=== PATIENT | female | born 1975 | race Caucasian/White ===

== ENCOUNTER → 2020-07-23 11:13 | Outpatient (CLI) | payer OTHER, SELFPAY ==
[2020-07-23 11:44] LABS: Basophils % 0.5 % (0.1-2.0); Eosinophils # 0.1 K/mm3 (0.0-0.4); Eosinophils % 1.4 % (0.1-12.0); Hematocrit 47.6 % (37.0-47.0); Hemoglobin 15.3 g/dL (12.2-16.2); Lymphocytes # 1.9 K/mm3 (0.7-4.5); Lymphocytes % 23.6 % (10-50); Mean Corpuscular HGB Conc 32.3 g/dL (31.8-35.4); Mean Corpuscular Hemoglobin 31.1 pg (27.0-31.2); Mean Corpuscular Volume 96.3 fl (81-99); Mean Platelet Volume 7.2 fl (7.4-10.4); Monocytes # 0.4 K/mm3 (0.1-1.0); Monocytes % 5.3 % (1.7-9.3); Neutrophils # 5.7 K/mm3 (1.8-7.8); Neutrophils % 69.2 % (37.0-80.0); Platelet Count 348 K/mm3 (142-424); Red Blood Count 4.94 M/mm3 (4.20-5.40); Red Cell Distribution Width 12.5 % (11.5-17.5); White Blood Count 8.2 K/mm3 (4.8-10.8)
[2020-07-23 12:10] LABS: Chloride 103 mmol/L (98-107)
[2020-07-23 12:11] LABS: Sodium 140 mmol/L (136-145)
[2020-07-23 12:13] LABS: Alanine Aminotransferase 24 U/L (12-78); Aspartate Amino Transferase 24 U/L (14-36); Blood Urea Nitrogen 13 mg/dl (7-17); Estimated Glomerular Filt Rate 78 ml/min (>60); GFR (African American) 95 ML/MIN (>60)
[2020-07-23 12:14] LABS: Albumin Level 4.5 g/dl (3.5-5.0); Albumin/Globulin Ratio 1.6 (1.1-1.8); Alkaline Phosphatase 63 U/L (38-126); Bilirubin,Total 0.3 mg/dl (0.2-1.3); Calcium 9.7 mg/dl (8.4-10.2); Carbon Dioxide 28 mmol/L (22.0-30.0); Globulin 2.9 g/dL (1.3-3.2); Glucose 74 mg/dl (74-100); Total Protein,Serum 7.4 g/dl (6.3-8.2)
[2020-07-23 12:18] LABS: HCG Qualitative, Serum Negative (Negative)
[2020-07-23 12:42] LABS: Coronavirus 19 IgG Antibody Negative (Negative); Coronavirus 19 IgM Antibody Negative (Negative)
[2020-07-23 14:24] LABS: Amphetamine/Metha Screen,Urine Negative ng/ml (<1000)
[2020-07-23 14:25] LABS: Barbiturates Screen,Urine Negative ng/ml (<200)
[2020-07-23 14:26] LABS: Benzodiazepines Screen,Urine Negative ng/ml (<200); Cocaine Screen,Urine Negative ng/ml (<300)
[2020-07-23 14:27] LABS: Methadone Screen,Urine Negative ng/ml (<300)
[2020-07-23 14:28] LABS: Cannabinoid Screen,Urine Negative ng/ml (<50); Phencyclidine Screen,Urine Negative ng/ml (<25)
[2020-07-23 14:29] LABS: Opiate Screen,Urine Negative ng/ml (<300)
== END ==
PROVIDERS: Visit Provider Obstetrics & Gynecology
DX: Z01.818 Encounter for other preprocedural examination (principal); N92.0 Excessive and frequent menstruation with regular cycle; R10.2 Pelvic and perineal pain
CPT/HCPCS: 36415; 80053; 80305; 84703; 85025; 86328

== ENCOUNTER 2020-07-24 06:25 | Inpatient (IN) | payer OTHER, SELFPAY ==
[2020-06-28 13:41] VITALS: BMI 25.2
[2020-07-24] VITALS (24 sets, daily range): BP systolic 116–152; BP diastolic 69–98; PULSE 71–115; RESP 12–19; TEMP 36.6–43; O2SAT 95–100
--- NOTE | 2020-07-24 08:29 | HMH.HP ---
*Admission Date: 07/24/20 *Chief complaint: Heavy menstrual bleeding, pelvic pain *History of present illness: 45 yo Previous tubal ligation, x 2 Reports Heavy menstrual bleeding, DUB and polymenorrhea Patient states that she bleeds 3 out of 4 weeks every month Bleeding ranges from heavy to light; heavy days involve tampon changes q 30 minutes + severe dysmenorrhea and intermittent pelvic pain, particularly LLQ Symptoms present for approximately 4 years Reports taking 800mg Ibuprofen q 6 hrs daily with minimal relief Pelvic ultrasound [place]: Uterus 9.5 x 4.5 x 6.6cm with 3.4cm fibroid Endometrial stripe 13mm Ovaries reported as normal, but no measurements given Desires definitive surgical management with hysterectomy Counseled for ovarian preservation if ovaries appear normal during surgery [facility] History I have reviewed the patient's past medical history: Yes Medical History: Reports:: Depression Denies:: Cancer, Diabetes Mellitus Type 1, Diabetes Mellitus Type 2, Internal Pacemaker, MRSA, Seizures *Have you ever received a pneumonia vaccine?: No *Have you received a flu vaccine this season?: No Other Medical History: Denies: Blood Transfusion Reaction Other Surgeries: Yes: Cholecystectomy, Tubal Ligation. No: Pacemaker Amputation: No Fractures: No - *Social History Last grade of school completed: High school graduate Smoking Status: Never smoker Alcohol Intake: never Substance Use Type: denies use *Occupational Status:: unemployed Housing: house Household Members: spouse *Travel in the last 8 weeks: None - Psychiatric History Pschychiatric History:: Reports:: Depression Family Hx:: Cancer, Hyperlipidemia, Hypertension, Kidney Disease, Stroke, Asthma Review of Systems - Review of Systems Review of systems:: pertinent systems reviewed and negative unless documented below - *Genitourinary Reports abnormal periods, Reports heavy periods, Reports pelvic pain Meds Home Medications Medication Instructions Recorded Confirmed Type escitalopram oxalate 10 mg tablet 10 mg PO DAILY 06/11/20 06/28/20 History hydrocodone 5 mg-acetaminophen 325 1 tab PO Q6H PRN #12 tab 07/10/20 07/24/20 Rx mg tablet Allergies Allergy/AdvReac Type Severity Reaction Status Date / Time Penicillins Allergy Mild Rash Verified 07/19/20 13:59 sumatriptan [From Imitrex] Allergy Mild heart Verified 07/19/20 13:59 palpations Exam Vital signs and Labs for Last 24 Hours: Temp Pulse Resp BP Pulse Ox 97.8 F 89 18 140/81 99 07/24/20 06:54 07/24/20 06:54 07/24/20 06:54 07/24/20 06:54 07/24/20 06:54 - *Routine HEENT Exam Head: Present: normocephalic Eye: Absent: conjunctival icterus ENT: Present: mucous membranes moist - *Routine Neck Exam Present: supple. Absent: lymphadenopathy - *Routine Respiratory Exam Present: CTA bilaterally - *Routine Cardiovascular Exam Present: RRR - *Routine Abdominal Exam Present: soft, normoactive bowel sounds. Absent: tenderness, distended - *Routine Exam External: Absent: lesions Comments: enlarged uterus - *Routine Extremities Exam Absent: cyanosis, clubbing, edema - *Routine Skin Exam Present: warm. Absent: rash - *Routine Neurological Exam Present: alert, oriented X3 Assessment and Plan (1) Heavy menstrual bleeding Status: Acute Category: Medical Code(s): N92.0 - Excessive and frequent menstruation with regular cycle (2) DUB (dysfunctional uterine bleeding) Status: Acute Category: Medical Code(s): N93.8 - Other specified abnormal uterine and vaginal bleeding (3) Pelvic pain in female Status: Acute Category: Medical Code(s): R10.2 - Pelvic and perineal pain (4) Severe dysmenorrhea Status: Acute Category: Medical Code(s): N94.6 - Dysmenorrhea, unspecified (5) Bulky or enlarged uterus Status: Acute Category: Medical Code(s): N85.2 - Hypertrophy of uterus (6) Uterine fibroid Status: A
--- NOTE | 2020-07-24 09:30 | HMH.PHAINT ---
Medication reconciliation completed using pharmacy claims data.
--- NOTE | 2020-07-24 09:59 | P.PN_ITS ---
[facility] Anesthesia Checklist - Structural Data Admitted From: Home Planned Operative Procedure/s: [facility] Consent for Planned Operative Procedure(s) Verified: Yes - Additional verifications Anesthesia Reactions: No Hx Blood Transfusions: No Blood Transfusion Reaction: No - Airway Assessment C-Spine Mobility Assessed: Yes TMJ Mobility Assessed: Yes Dentition: Good Dentition - Neurological Assessment Level of Consciousness: Awake, Alert, Appropriate - Anesthesia Plan Anesthesia Risk discussed: Yes Anesthesia Plan: Verified ASA Class: II Anesthesia Type: General [facility] History I have reviewed the patient's past medical history: Yes Medical History: Reports:: Depression Denies:: Cancer, Diabetes Mellitus Type 1, Diabetes Mellitus Type 2, Internal Pacemaker, MRSA, Seizures *Have you ever received a pneumonia vaccine?: No *Have you received a flu vaccine this season?: No Other Medical History: Denies: Blood Transfusion Reaction Anesthesia experience/problems:: none Other Surgeries: Yes: Cholecystectomy, Tubal Ligation. No: Pacemaker Amputation: No Fractures: No - *Social History Last grade of school completed: High school graduate Smoking Status: Never smoker Alcohol Intake: never Substance Use Type: denies use *Occupational Status:: unemployed Housing: house Household Members: spouse *Travel in the last 8 weeks: None - Psychiatric History Pschychiatric History:: Reports:: Depression Family Hx:: Cancer, Hyperlipidemia, Hypertension, Kidney Disease, Stroke, Asthma
--- NOTE | 2020-07-24 10:52 | P.PN_ITS ---
[facility] Anesthesia Record Part I Intake, IV Amount: 2,000 Estimated blood loss (mL): 200 Urine output (mL): 100 Blood Pressure: 150/90 SaO2: 95 Pulse Rate: 85 Respiratory Rate: 12 Temperature: 98.5 F Patient is:: Awake, Stable Stable to PACU at:: 10:45
[2020-07-24 11:17] LABS: Microscopic,Cath URINE MICROSCOPIC (MICROSCOPIC)
--- NOTE | 2020-07-24 11:35 | PC.NURSE ---
Report received from Linwood Aguilar RN (PACU)
--- NOTE | 2020-07-24 11:45 | PC.NURSE ---
Pt arrived to room 280 via bed from PACU and O.R. staff x2.
--- NOTE | 2020-07-24 12:32 | HMH.OPNOTE ---
Date of procedure: 07/24/20 Pre-op Diagnosis:: Heavy menstrual bleeding Dysfunctional uterine bleeding Pelvic pain Uterine fibroid Post-op Diagnosis:: same Procedure performed:: Total Abdominal Hysterectomy Surgeon:: Arlene Lovell MD Special Education Administrator(s):: Renee Luis PLATE GLASS POLISHER:: Tarun Gray Anesthesia: GETA Estimated blood loss (mL): 200 Operative findings:: enlarged uterus normal ovaries bilaterally displaced fallope rings Operative note:: The patient was taken to the operating room and general anesthesia was administered without difficulty. She was prepped and draped in the supine position. A Pfannenstiel skin incision was made approximately 2 cm above the pubic symphysis with a scalpel and carried down to the underlying layer of fascia. The fascia was incised in the midline and extended laterally sharply. The rectus muscles were sharply dissected off the fascia and in the midline. The peritoneum was turned and sharply, with good visualization of the underlying structures. The peritoneal incision was extended bluntly. A survey of the patient's pelvis and abdomen revealed an enlarged uterus with normal ovaries. At this time, the patient was placed in Trendelenburg and a Leo retractor was placed in the abdomen; the bowel was packed with moist laparotomy sponges. A double tooth tenaculum was placed on the uterine fundus and the uterus was elevated out of the pelvis. No fibroids or other visible uterine lesions were noted. The round ligaments were identified and transected and suture-ligated. The anterior lip of the broad ligament was dissected medially on both sides and the bladder flap was created digitally. The posterior leaf of the broad ligament was dissected until the ureters were able to be identified on either side and noted to be free of the forthcoming adnexal pedicles. Infundibulopelvic ligaments were doubly clamped transected and suture ligated on either side, with excellent hemostasis noted. The uterine arteries were skeletonized on either side, and were clamped, transected and suture ligated with excellent hemostasis. The bladder flap was further bluntly dissected off the lower uterine segment with excellent hemostasis and without injury to the bladder. The cardinal and uterosacral ligaments were clamped transected and suture ligated on both sides until the vaginal mucosa was entered. The vaginal incision was extended circumferentially with the Jorganson scissors; the uterus and cervix were removed abdominally and sent for pathology, along with the fallopian tubes. The vaginal cuff angles were closed 0 Vicryl [id number] sutures and were transfixed to the ipsilateral cardinal and uterosacral ligaments. The remainder of the vaginal cuff was closed with 0 Vicryl interrupted sutures. The pelvis was copiously irrigated with a solution of sterile water. The cuff was hemostatic. All pedicles were reexamined and remained hemostatic. All instruments were removed from the patient's abdomen. The peritoneum was closed with 2-0 Vicryl in a running fashion. The fascia was closed with 0 Vicryl in a running fashion. The skin was closed with kiara. The patient tolerated the procedure well; sponge/lap/needle and instrument counts were correct ?2. She was taken to the recovery room awake in stable condition. Estimated blood loss: 200 cc. Condition: stable Disposition: PACU Specimens:: uterus and cervix Complications:: None
--- NOTE | 2020-07-24 13:08 | PC.NURSE ---
Pt very drowsy from pain medication. Complains of escobedo catheter being uncomfortable and needing to pee. Tubing and position of catheter manipulated and position of where collection bag was hanging changed several times. Able to get 300mls bright yellow clear urine to empty.
--- NOTE | 2020-07-24 13:35 | PC.NURSE ---
Pt remains asleep, spouse remains at bs, escobedo cath patent to bsd at this time.
[2020-07-24 13:49] LABS: Hematocrit 34.9 % (37.0-47.0); Hemoglobin 11.5 g/dL (12.2-16.2)
[2020-07-24 14:03] LABS: Appearance,Urine/Cath CLEAR (Clear); Bilirubin,Cath Negative (Negative); Blood, Urine/Cath 1+ (Negative); Color,Urine/Cath YELLOW (Yellow); Glucose,Urine/Cath (UA) Negative (Negative); Ketones,Urine/Cath Negative (Negative); Leukocyte Esterase,Cath Negative (Negative); Nitrate,Cath Negative (Negative); Protein,Urine/Cath 1+ (Negative); Specific Gravity, Urine/Cath >= 1.030 (1.005-1.030); Urobilinogen,Cath 0.2 EU/dl (0.2)
[2020-07-24 14:15] LABS: Squamous Epithelial Ur./Cath Occasional #/hpf (0-5)
--- NOTE | 2020-07-24 15:19 | PC.NURSE ---
Pt sleeping soundly at this time. at bs in chair watching TV. Reports that pt has been asleep since receiving pain medication and is resting well. Vital signs continue to cycle. O2 SATS remain 100% on 2L NC. Tri Cath patent to bsd.
--- NOTE | 2020-07-24 16:38 | PC.NURSE ---
remains at bs. Pt remains asleep at this time. Yellow urine noted to be draining in escobedo cath..
--- NOTE | 2020-07-24 17:00 | PC.NURSE ---
Pt has rested better after this last dose of pain medication. Bartlett cath remains patent to bsd. Clear yellow urine noted. IV LR infusing at 125ml/hr in rt/fa. Lungs remain clear, +BSx4 quads, LTV incision dressing CDI, small amt vaginal bleeding noted. No edema. Bilat compression stockings (thigh high) remain in place. V/S stable. remains at bs.
--- NOTE | 2020-07-24 19:24 | PC.NURSE ---
Report received Amilcar DacostaRN
--- NOTE | 2020-07-24 22:00 | P.PN_ITS ---
[facility] Anesthesia Record Part II Discharge Time: 11:15 Destination: Obstetric PACU nurse assessment reviewed?: Yes Patient Condition:: Good Anesthesia Complications:: None Swallowing reflex intact?: Yes Cyanosis?: No Blood Pressure: 150/95 Pulse Rate: 71 Temperature: 97.9 F Mental Status: Alert & Oriented Pain level:: 0 Nausea and/or vomitting:: None Intake, IV Amount: 0
[2020-07-25 02:14] VITALS: BP 121/81; PULSE 99; RESP 18; TEMP 37.7; O2SAT 97
[2020-07-25 04:30] VITALS: BP 106/83; PULSE 110; RESP 18; TEMP 36.8; O2SAT 95
--- NOTE | 2020-07-25 05:40 | PC.NURSE ---
Pt has slept in intervals this shift. A&O x4, BLT Lung sounds clear, Bowel sounds present in all 4 quadrants but are hypoactive. Pt switched to 1L NC r/t pain medicine and mouth breathing, O2 saturation 93% without O2. Pts incision remains covered with a dressing and is C/D/I. Pt has been medicated for pain per MAR throughout this shift. thigh high ICPs remain in place. Pt has voided per BSC with x1 assistance. A belly binder was put on the Pt at this time to help splint the incision. Pt is tolerating a clear liquid diet well
--- NOTE | 2020-07-25 07:11 | PC.NURSE ---
Report received from Dulce Maria Sterling RN.
--- NOTE | 2020-07-25 07:11 | PC.NURSE ---
Report given to Jodi PerlaRN
--- NOTE | 2020-07-25 07:14 | HMH.PHAVTE ---
[facility] VTE Monitoring - Patient Demographics Admission date: 07/24/20 Report Date: 07/25/20 Time: 07:14 Allergies/Adverse Reactions: Patient Allergies Penicillins Allergy (Mild, Verified 07/19/20 13:59) Rash sumatriptan [From Imitrex] Allergy (Mild, Verified 07/19/20 13:59) heart palpations Height: 1.57 m Weight: 62.596 kg Patient Problems: Current Active Problems Severe dysmenorrhea (Acute) History of tubal ligation (Acute) Pelvic pain in female (Acute) DUB (dysfunctional uterine bleeding) (Acute) Uterine fibroid (Acute) Bulky or enlarged uterus (Acute) Heavy menstrual bleeding (Acute) - VTE Risk Labs: VTE Related Lab Results Hgb 11.5 g/dL (12.2-16.2) L 07/24/20 13:20 Hct 34.9 % (37.0-47.0) L 07/24/20 13:20 Clinical Trial Participant: No - Prophylaxis VTE Prophylaxis Ordered?: Yes Types of VTE Prophylaxis: IPCS Knee High Location of Applied Device: Bilateral Lower Extremeties
[2020-07-25 07:18] LABS: Chloride 102 mmol/L (98-107); Sodium 134 mmol/L (136-145)
[2020-07-25 07:19] LABS: Potassium 4.2 mmoL/L (3.5-5.1)
[2020-07-25 07:21] LABS: Blood Urea Nitrogen 15 mg/dl (7-17); Creatinine Clearance Estimated 80 mL/min (50-200); Estimated Glomerular Filt Rate 68 ml/min (>60); GFR (African American) 83 ML/MIN (>60)
[2020-07-25 07:22] LABS: Anion Gap 7.2 mEq/L (5-15); Carbon Dioxide 29 mmol/L (22.0-30.0); Glucose 132 mg/dl (74-100)
[2020-07-25 07:47] LABS: Basophils % 0.1 % (0.1-2.0); Hematocrit 27.8 % (37.0-47.0); Lymphocytes # 1.4 K/mm3 (0.7-4.5); Lymphocytes % 13.9 % (10-50); Mean Corpuscular HGB Conc 33.5 g/dL (31.8-35.4); Mean Corpuscular Hemoglobin 31.9 pg (27.0-31.2); Mean Corpuscular Volume 95.4 fl (81-99); Mean Platelet Volume 7.6 fl (7.4-10.4); Monocytes # 0.8 K/mm3 (0.1-1.0); Neutrophils % 78.1 % (37.0-80.0); Platelet Count 314 K/mm3 (142-424); Red Blood Count 2.91 M/mm3 (4.20-5.40); White Blood Count 10.2 K/mm3 (4.8-10.8)
[2020-07-25 07:48] LABS: Hemoglobin 9.3 g/dL (12.2-16.2)
[2020-07-25 08:00] VITALS: BP 98/55; PULSE 82; RESP 16; TEMP 36.7; O2SAT 100
--- NOTE | 2020-07-25 08:20 | PC.NURSE ---
Routine assessment completed. BP noted to be at 98/55. all other VSS. SPO2 at 100% on RA, NC removed pt. SPO2 remains at 100% on RA. Lungs CTA, Heart at RR. BS present x4 quad. Pt. reports passing small amount of flatus.Low transverse incision with T&T noted to be C/D/I. Pt. reports pain at 6/10 at incision site, see EMAR for medications given. Thigh high IPCS intact. pt. remains on clear liquid diet, Pt. denies further needs. Will continue to monitor.
[2020-07-25 08:25] VITALS: BMI 25.4
--- NOTE | 2020-07-25 09:18 | PC.NURSE ---
09:18 - Pt. reports pain has worsened and pain medication ineffective. additional pain medication given see EMAR. 09:25 - Pt. reports Pain easing with additional pain medication. Pt. denies further needs, will continue to monitor.
--- NOTE | 2020-07-25 09:20 | PC.NURSE ---
19:18 - Pt. reports pain has worsened, Additional pain medication given. 19:20 - Pt. reports pain medication starting to have effect. Pt. denies further needs will continue to monitor.
--- NOTE | 2020-07-25 10:28 | PC.NURSE ---
Dr. Lovell in room seeing pt. Report given to MD on pain control, vitals trends, and labs. Orders received to change IV Dilaudid to P.O dilaudid. Orders read back and verified.
--- NOTE | 2020-07-25 10:37 | HMH.ACPN2 ---
Internal Medicine - PN: Subj *Date: 07/25/20 *Time: 10:37 Interval history: POD #1 LEEROY Tolerating po and voiding without difficulty Pain control has been insufficient with oxycodone; switching to po dilaudid Exam Vital signs and Labs for Last 24 Hours: Temp Pulse Resp BP Pulse Ox 98.1 F 82 16 98/55 L 100 07/25/20 08:00 07/25/20 08:00 07/25/20 08:00 07/25/20 08:00 07/25/20 08:00 Laboratory Results - last 24 hr 07/24/20 08:45: Urine Color Yellow, Urine Appearance Clear, Urine pH 6.0, Ur Specific [place] >= 1.030, Urine Protein 1+, Urine Glucose (UA) Negative, Urine Ketones Negative, Urine Blood 1+, Urine Nitrate Negative, Urine Bilirubin Negative, Urine Urobilinogen 0.2, Ur Leukocyte Esterase Negative, Urine RBC 5-10, Urine WBC 3-5, Ur Squamous Epith Cells Occasional 07/24/20 13:20: Hgb 11.5 L, Hct 34.9 L 07/25/20 06:21: Sodium 134 L, Potassium 4.2, Chloride 102, Carbon Dioxide 29, Anion Gap 7.2, BUN 15, Creatinine 0.90, Estimated Creat Clear 80, Estimated GFR 68, Est GFR ( Amer) 83, Glucose 132 H, Calcium 8.0 L D 07/25/20 06:21: WBC 10.2, RBC 2.91 L D, Hgb 9.3 L D, Hct 27.8 L, MCV 95.4, MCH 31.9 H, MCHC 33.5, RDW 13.0, Plt Count 314, MPV 7.6, Neut % (Auto) 78.1, Lymph % (Auto) 13.9, [place] % (Auto) 8.0, Eos % (Auto) 0.0 L, Baso % (Auto) 0.1, Neut # (Auto) 8.0 H, Lymph # (Auto) 1.4, [place] # (Auto) 0.8, Eos # (Auto) 0.0, Baso # (Auto) 0.0 I & O for Last 24 hours: Intake & Output 07/22/20 07/23/20 07/24/20 07/25/20 11:59 11:59 11:59 11:59 Intake Total 1999 0 / 0 Output Total 450 / 450 Balance 1999 -450 / -450 Weight 138 lb 0.009 oz Narrative: CONSTITUTIONAL: no acute distress HEENT: mucous membranes moist PULMONARY: breathing unlabored without audible wheezes CV: no tachycardia or visible JVD; normal LE peripheral pulses ABD: soft, ND; appropriately tender but no rebound/guarding SKIN: incision well approximated with no drainage, erythema or induration EXT: no edema LEs NEURO: alert/oriented, no altered mental status PSYCH: appropriate mood and demeanor without anxiety/depression Assessment and Plan (1) Heavy menstrual bleeding Status: Acute Category: Medical Code(s): N92.0 - Excessive and frequent menstruation with regular cycle (2) DUB (dysfunctional uterine bleeding) Status: Acute Category: Medical Code(s): N93.8 - Other specified abnormal uterine and vaginal bleeding (3) Pelvic pain in female Status: Acute Category: Medical Code(s): R10.2 - Pelvic and perineal pain (4) Severe dysmenorrhea Status: Acute Category: Medical Code(s): N94.6 - Dysmenorrhea, unspecified (5) Bulky or enlarged uterus Status: Acute Category: Medical Code(s): N85.2 - Hypertrophy of uterus (6) Uterine fibroid Status: Acute Category: Medical Code(s): D25.9 - Leiomyoma of uterus, unspecified (7) History of tubal ligation Status: Acute Category: Surgical Code(s): Z98.51 - Tubal ligation status (8) History of hysterectomy Status: Acute Category: Surgical Code(s): Z90.710 - Acquired absence of both cervix and uterus - Assessment and plan all Dx Assessment and Plan for all problems:: Routine postop care Switch oxycodone to dilaudid Possible discharge tomorrow
[2020-07-25 12:00] VITALS: BP 129/77; PULSE 98; RESP 16; TEMP 37.1; O2SAT 98
--- NOTE | 2020-07-25 12:17 | PC.NURSE ---
Pt. ambulated to bathroom. Pt. tolerated well. Pt. rates pain at 3/10. Pt. back to bed with assistance. Pt. denies further needs, will continue to monitor.
--- NOTE | 2020-07-25 15:45 | PC.NURSE ---
Dr. Peraza on unit, update given on Pt. as Dr. Peraza [facility]. Pt. pain level is at 8/10, Medication not available until 16:00. v/u. Verbal Order received for 0.5-1mg Dilaudid IV Q2PRN for breakthrough pain and to monitor, O2 sats when given. Orders read back and verified.
[2020-07-25 16:00] VITALS: BP 107/65; PULSE 97; RESP 16; TEMP 37.1; O2SAT 100
--- NOTE | 2020-07-25 16:00 | PC.NURSE ---
Routine reassessment completed. VSS. Pt. rates pain at 8/10. See EMAR for medications given. No further acute changes noted. Lungs remain CTA, Heart at RR. BS present x4 quad. Pt. reports passing flatus. T&T at LTV remains C/D/I. Pt. in bed without SCUDS ON. Pt. has been ambulating in room. Pt. denies further needs will continue to monitor.
--- NOTE | 2020-07-25 19:12 | PC.NURSE ---
Report given to Luisana Zamudio RN.
[2020-07-25 20:16] VITALS: BP 120/68; PULSE 103; RESP 20; TEMP 37.1; O2SAT 100
--- NOTE | 2020-07-25 20:34 | PC.NURSE ---
pt continued to c/o increased pain, pt moaning in pain continued to rate pain a 10/10 on pain scale, abd soft,bs x4, no nausea noted, pt has minimal movements related to pain in abdomen, abd binder loosened at this time, warm blanket provided and prn medication given. will continue to monitor at this time
--- NOTE | 2020-07-25 23:28 | PC.NURSE ---
PT C/O BACK PAIN AT THIS TIME, HEATING PAD PROVIDED
[2020-07-26 04:33] VITALS: BP 108/68; PULSE 101; RESP 18; TEMP 37.2; O2SAT 93
--- NOTE | 2020-07-26 05:41 | PC.NURSE ---
pt is alert and oriented and able to make needs known, pt has been medicated multiple times for pain when pt awake pt rates pain 10/10 on pain scale. pt has rested in intervals, lungs remain clear, heart rate regular, bs x4, abd tender but soft, low transverse incision dressing in place and clean dry and intact, vss. will continue to monitor at this time
--- NOTE | 2020-07-26 07:04 | PC.NURSE ---
Report received from Luisana Zamudio RN.
--- NOTE | 2020-07-26 07:05 | PC.NURSE ---
report given to Otoniel Perla RN
[2020-07-26 08:00] VITALS: BP 108/58; PULSE 91; RESP 16; TEMP 37; O2SAT 94
--- NOTE | 2020-07-26 08:00 | PC.NURSE ---
Routine assessment completed. VSS. Lungs CTA, Heart at RR. BS present x4 quad. LTV T&T C/D/I dressing changed scant amount of dry sanguineous drainage noted to inside of dressing, site cleansed with 1/2 NS 1/2 Peroxide solution, kiara remain in place, skin is approximated, and pink, new T&T in place. Pt. reports pain at 6/10 requests pain medication. Pt. refuses SCUDS at this time. Pt denies further needs, will continue to monitor.
--- NOTE | 2020-07-26 08:20 | PC.NURSE ---
Spoke with Dr. Lovell via telephone regarding pt. pain. Orders received to given P.O dilaudid 2 mg dose now, add Ibuprofen 800mg Q6 PRN,. D/C IV dilaudid, and P.O Toradol, Orders read back and verified.
[2020-07-26 09:10] LABS: Hemoglobin 7.7 g/dL (12.2-16.2)
[2020-07-26 09:11] LABS: Hematocrit 22.7 % (37.0-47.0)
--- NOTE | 2020-07-26 09:15 | PC.NURSE ---
Dr. Lovell notified of critical H/H no orders received. reports she will be over to see Pt.
--- NOTE | 2020-07-26 13:25 | HMH.ACPN2 ---
Internal Medicine - PN: Subj *Date: 07/26/20 *Time: 13:25 Interval history: POD #2 LEEROY Having difficulty with pain control and requesting IV pain meds PO dilaudid working better than oxycodone but giving her a headache Hgb dropped from 9.3 yesterday to 7.7 today Abdominal tenderness with palpation is mild, and abdomen soft, non-distended No drainage from incision Tolerating regular diet Ambulating and voiding without difficulty Exam Vital signs and Labs for Last 24 Hours: Temp Pulse Resp BP Pulse Ox 98.6 F 91 H 16 108/58 L 94 L 07/26/20 08:00 07/26/20 08:00 07/26/20 08:00 07/26/20 08:00 07/26/20 08:00 Laboratory Results - last 24 hr 07/26/20 08:35: Hgb 7.7 L*, Hct 22.7 L* I & O for Last 24 hours: Intake & Output 07/24/20 07/25/20 07/26/20 07/27/20 11:59 11:59 11:59 11:59 Intake Total 1999 0 / 0 Output Total 450 / 450 Balance 1999 -450 / -450 Weight 138 lb 0.009 oz Narrative: CONSTITUTIONAL: no acute distress HEENT: mucous membranes moist PULMONARY: breathing unlabored without audible wheezes CV: no tachycardia or visible JVD; normal LE peripheral pulses ABD: soft, ND; appropriately tender but no rebound/guarding SKIN: incision well approximated with no drainage, erythema or induration EXT: no edema LEs NEURO: alert/oriented, no altered mental status PSYCH: appropriate mood and demeanor without anxiety/depression Assessment and Plan (1) Heavy menstrual bleeding Status: Acute Category: Medical Code(s): N92.0 - Excessive and frequent menstruation with regular cycle (2) DUB (dysfunctional uterine bleeding) Status: Acute Category: Medical Code(s): N93.8 - Other specified abnormal uterine and vaginal bleeding (3) Pelvic pain in female Status: Acute Category: Medical Code(s): R10.2 - Pelvic and perineal pain (4) Severe dysmenorrhea Status: Acute Category: Medical Code(s): N94.6 - Dysmenorrhea, unspecified (5) Bulky or enlarged uterus Status: Acute Category: Medical Code(s): N85.2 - Hypertrophy of uterus (6) Uterine fibroid Status: Acute Category: Medical Code(s): D25.9 - Leiomyoma of uterus, unspecified (7) History of tubal ligation Status: Acute Category: Surgical Code(s): Z98.51 - Tubal ligation status (8) History of hysterectomy Status: Acute Category: Surgical Code(s): Z90.710 - Acquired absence of both cervix and uterus (9) Anemia associated with acute blood loss Status: Acute Category: Medical Code(s): D62 - Acute posthemorrhagic anemia - Assessment and plan all Dx Assessment and Plan for all problems:: Will switch po dilaudid to po oxycodone patient desires discharge home today and physical exam/vitals are stable for discharge started on po ferrous sulfate for postop anemia
--- NOTE | 2020-07-26 13:48 | [facility].DCSUM ---
General - General Admission date:: 07/24/20 Discharge date: 07/26/20 HPI HPI: 45 yo Previous tubal ligation, x 2 Reports Heavy menstrual bleeding, DUB and polymenorrhea Patient states that she bleeds 3 out of 4 weeks every month Bleeding ranges from heavy to light; heavy days involve tampon changes q 30 minutes + severe dysmenorrhea and intermittent pelvic pain, particularly LLQ Symptoms present for approximately 4 years Reports taking 800mg Ibuprofen q 6 hrs daily with minimal relief Pelvic ultrasound [place]: Uterus 9.5 x 4.5 x 6.6cm with 3.4cm fibroid Endometrial stripe 13mm Ovaries reported as normal, but no measurements given Desires definitive surgical management with hysterectomy Counseled for ovarian preservation if ovaries appear normal during surgery Hospital Course Hospital Course: Patient underwent total abdominal hysterectomy Discharged home on POD #2 Tolerating regular diet Ambulating and voiding without difficulty Asymptomatic with acute blood loss anemia Patient desires discharge home today Objective Vital signs: Temp Pulse Resp BP Pulse Ox 98.6 F 91 H 16 108/58 L 94 L 07/26/20 08:00 07/26/20 08:00 07/26/20 08:00 07/26/20 08:00 07/26/20 08:00 Narrative: CONSTITUTIONAL: no acute distress HEENT: mucous membranes moist PULMONARY: breathing unlabored without audible wheezes CV: no tachycardia or visible JVD; normal LE peripheral pulses ABD: soft, ND; appropriately tender but no rebound/guarding SKIN: incision well approximated with no drainage, erythema or induration EXT: no edema LEs NEURO: alert/oriented, no altered mental status PSYCH: appropriate mood and demeanor Results Labs on day of discharge: Labs from last 24 hours 07/26/20 08:35 Hgb 7.7 L* Hct 22.7 L* DS: Diagnosis - Discharge Diagnosis (1) Heavy menstrual bleeding Status: Acute (2) DUB (dysfunctional uterine bleeding) Status: Acute (3) Pelvic pain in female Status: Acute (4) Severe dysmenorrhea Status: Acute (5) Bulky or enlarged uterus Status: Acute (6) Uterine fibroid Status: Acute (7) History of tubal ligation Status: Acute (8) History of hysterectomy Status: Acute (9) Anemia associated with acute blood loss Status: Acute Discharge Plan - Patient Discharge Instructions ACTIVITY: Continue current activity DIET: regular diet Additional Instructions: No Heavy Lifting, no Strenuous activity, Nothing in the Vagina for 6 weeks. Return to OB unit on Thursday07/28/20 for Staple removal. Patient Instructions: DI for Tubal Ligation, DI for Hysterectomy, How to Care for a Surgical Wound-Bhvaesh, Preventing the Spread of Coronavirus Discharge Instructions - Follow up Plan Disposition: Home, Self-Skilled Nursing Medications: Home Medications Medication Instructions Recorded Confirmed Type escitalopram oxalate 10 mg tablet 10 mg PO DAILY 06/11/20 06/28/20 History Hydrocodone/Acetaminophen [[place] 1 tab PO Q6H PRN 07/24/20 07/24/20 History 5-325 Tablet] Ferrous Sulfate [Ferrous Sulfate 325 mg PO BID #60 tab 07/26/20 Rx 325mg Tab] Ibuprofen [Motrin 400mg 800 mg PO Q6HP PRN #40 tab 07/26/20 Rx tablet] Oxycodone HCl [OxyIR 5mg tablet] 5 - 10 mg PO Q4HP PRN #30 tab 07/26/20 Rx Promethazine HCl [Phenergan 12.5 mg PO Q6HP PRN #20 vial 07/26/20 Rx 25mg/mL 1mL vial] Prescriptions/Medication Reconciliation: New Oxycodone HCl [OxyIR 5mg tablet] 5 - 10 mg PO Q4HP PRN #30 tab PRN Reason: Moderate To Severe Pain Ibuprofen [Motrin 400mg tablet] 800 mg PO Q6HP PRN #40 tab PRN Reason: Mild Pain,Fever,Headache Promethazine HCl [Phenergan 25mg/mL 1mL vial] 12.5 mg PO Q6HP PRN #20 vial PRN Reason: Nausea And Vomiting Continued escitalopram oxalate 10 mg tablet 10 mg PO DAILY Hydrocodone/Acetaminophen [[place] 5-325 Tablet] 1 tab PO Q6H PRN PRN Reason
--- NOTE | 2020-07-26 15:20 | PC.NURSE ---
Discharge instructions provided, questions encouraged and answered. Discharge paperwork signed my pt. at this time.
--- NOTE | 2020-07-26 15:40 | PC.NURSE ---
Pt. left the unit via wheelchair. Accompanied by staff and spouse.
== END 2020-07-26 15:40 | disposition home or self-care (01) | DRG 743 ==
LOC: OB 06:26
PROVIDERS: Admitting Provider Obstetrics & Gynecology; PCP Emergency Medicine; Visit Provider Obstetrics & Gynecology
PROC: 0UT90ZZ Resection of Uterus, Open Approach (ICD-10-PCS; CPT 58150; principal; 2020-07-24 08:00)
DX: N92.0 Excessive and frequent menstruation with regular cycle (principal); N93.8 Other specified abnormal uterine and vaginal bleeding; N85.2 Hypertrophy of uterus; N94.6 Dysmenorrhea, unspecified; D64.9 Anemia, unspecified; D25.9 Leiomyoma of uterus, unspecified; R10.2 Pelvic and perineal pain
CPT/HCPCS: 58150; 36415; 80048; 80053; 80305; 81001; 84703; 85014; 85018; 85025; 86328; 94761; 96374; J2405; J2710

== ENCOUNTER → 2020-08-07 15:06 | Outpatient (CLI) | payer OTHER, SELFPAY ==
[2020-08-07 15:07] LABS: Microscopic, Urine URINE MICROSCOPIC (MICROSCOPIC)
[2020-08-07 16:01] LABS: Basophils # 0.1 K/mm3 (0-0.2); Basophils % 0.8 % (0.1-2.0); Eosinophils # 0.5 K/mm3 (0.0-0.4); Eosinophils % 3.2 % (0.1-12.0); Hematocrit 34.7 % (37.0-47.0); Hemoglobin 11.2 g/dL (12.2-16.2); Lymphocytes # 2.6 K/mm3 (0.7-4.5); Lymphocytes % 15.9 % (10-50); Mean Corpuscular HGB Conc 32.4 g/dL (31.8-35.4); Mean Corpuscular Hemoglobin 29.8 pg (27.0-31.2); Mean Corpuscular Volume 92.1 fl (81-99); Mean Platelet Volume 7.3 fl (7.4-10.4); Monocytes # 0.9 K/mm3 (0.1-1.0); Monocytes % 5.5 % (1.7-9.3); Neutrophils # 12.2 K/mm3 (1.8-7.8); Neutrophils % 74.5 % (37.0-80.0); Platelet Count 686 K/mm3 (142-424); Red Blood Count 3.77 M/mm3 (4.20-5.40); Red Cell Distribution Width 13.5 % (11.5-17.5); White Blood Count 16.4 K/mm3 (4.8-10.8)
[2020-08-07 16:09] LABS: MANUAL DIFFERENTIAL MANUAL DIFFERENTIAL (MANUAL DIFF)
[2020-08-07 18:05] LABS: Appearance,Urine TURBID (Clear); Blood, Urine 3+ (Negative); Color,Urine BROWN (Yellow); Glucose,Urine (UA) Negative (Negative); Ketones,Urine TRACE (Negative); Leukocyte Esterase,Urine 1+ (Negative); Nitrate,Urine POSITIVE (Negative); PH,Urine 6.5 (5.0-8.5); Protein,Urine 3+ (Negative); Specific Gravity, Urine >= 1.030 (1.005-1.030)
[2020-08-07 18:14] LABS: Bilirubin,Urine Negative (Negative)
[2020-08-07 18:39] LABS: RBC,Urine 20-50 #/hpf (0-3)
[2020-08-07 22:21] LABS: Eosinophils % 3 % (0-3); Lymphocytes % 15 % (10-50); Monocytes % 6 % (2-9); Neutrophils % 76 % (42-76); RBC Morphology Normal; Total Cells Counted 100
== END ==
PROVIDERS: Visit Provider Nurse Practitioner Obstetrics & Gynecology
DX: Z48.89 Encounter for other specified surgical aftercare (principal); R39.9 Unspecified symptoms and signs involving the genitourinary system
CPT/HCPCS: 36415; 81001; 85007; 85025; 87086

== ENCOUNTER → 2020-08-08 10:52 | Outpatient (CLI) | payer OTHER, SELFPAY ==
--- NOTE | 2020-08-08 10:57 | CT_ITS ---
PROCEDURE: CT ABDOMEN PELVIS WO/W CON CLINICAL INDICATION: Increased WBC and Abdominal/Pelvic Pain, 2 weeks post hysterectomy, continuing and worsening pelvic pain, elevated white count COMPARISON: No exams were available for comparison TECHNIQUE: IV Contrast: 75ML OPTIRAY 350 Oral Contrast none given Axial images obtained with sagittal and coronal reformats. All CT scans at the facility use one or more dose reduction, viz: automated exposure control, ma/kV adjustment per patient size (including targeted exams where dose is matched to indication, i.e. head), or iterative reconstruction technique. FINDINGS: Lower thorax: No acute finding ABDOMEN: Liver: No masses or biliary dilatation. Gallbladder: Post cholecystectomy Pancreas: No masses or peripancreatic fluid collections. Spleen: unremarkable Adrenals: unremarkable Kidneys/ureters: The kidneys are normal in size and show symmetrical function, both appearing normal. ABDOMEN & PELVIS: Stomach bowel: The stomach and duodenal sweep appear normal. Small bowel is normal. There is a moderate amount stool and gas in the ascending and transverse colon. There are few scattered diverticuli of the sigmoid colon but there is no evidence of diverticulitis. Peritoneum: There is a large fluid collection low in the pelvis presenting on top of the urinary bladder measuring 9 point 2 x 9.6 cm on the axial image by 6.2 cm superior inferior dimension. This likely is a seroma and or organizing hematoma. The read of this structure are fairly thin, I would suspect thicker more irregular all wall appearance if this was a developing abscess. There is a curious ring-enhancing structure at the superior extent of this fluid collection with rim enhancement it measures 4.6 by 4.6 cm, this could be a right ovarian cyst. There is some hazy opacities in the subcutaneous tissues of the anterior abdominal wall consistent recent surgery. Lymph nodes: No enlarged lymph nodes apparent. Vasculature: No evidence of abdominal aortic aneurysm. No retroperitoneal hemorrhage evident. Bones: No acute fracture PELVIS: Reproductive: Post hysterectomy, see discussion above Bladder: The bladder is partially decompressed with mild mass effect on the dome of the urinary bladder secondary to the large fluid collection. Appendix: Not definitely identified there are no obvious findings to suggest appendicitis. IMPRESSION: Large fluid collection lower mid pelvis with measurements as described postoperative organizing hematoma and/or seroma is most likely. I would doubt an abscess although this cannot be entirely excluded. Suggest a follow-up study on Thursday to evaluate for for interval increase in size or decrease in size to better decide possible percutaneous drainage. Dictated by: Dr. Yuan Nicole MD 08/08/2020 12:43 Dr. Yuan Nicole MD in [facility] 08/08/2020 12:43
== END ==
PROVIDERS: PCP Emergency Medicine; Visit Provider Nurse Practitioner Obstetrics & Gynecology
DX: R10.2 Pelvic and perineal pain (principal); R10.9 Unspecified abdominal pain; D72.829 Elevated white blood cell count, unspecified
CPT/HCPCS: 74178; Q9967

== ENCOUNTER → 2020-08-09 10:17 | Outpatient (CLI) | payer OTHER, SELFPAY ==
[2020-08-09 10:50] LABS: Basophils # 0.1 K/mm3 (0-0.2); Basophils % 0.7 % (0.1-2.0); Eosinophils # 0.3 K/mm3 (0.0-0.4); Eosinophils % 3.9 % (0.1-12.0); Hematocrit 33.9 % (37.0-47.0); Hemoglobin 10.9 g/dL (12.2-16.2); Lymphocytes # 1.8 K/mm3 (0.7-4.5); Lymphocytes % 21.3 % (10-50); Mean Corpuscular HGB Conc 32.1 g/dL (31.8-35.4); Mean Corpuscular Hemoglobin 29.6 pg (27.0-31.2); Mean Corpuscular Volume 92.2 fl (81-99); Mean Platelet Volume 7.6 fl (7.4-10.4); Monocytes # 0.6 K/mm3 (0.1-1.0); Monocytes % 6.5 % (1.7-9.3); Neutrophils # 5.7 K/mm3 (1.8-7.8); Neutrophils % 67.6 % (37.0-80.0); Platelet Count 654 K/mm3 (142-424); Red Blood Count 3.68 M/mm3 (4.20-5.40); Red Cell Distribution Width 13.1 % (11.5-17.5); White Blood Count 8.4 K/mm3 (4.8-10.8)
== END ==
PROVIDERS: Visit Provider Nurse Practitioner Obstetrics & Gynecology
DX: R10.9 Unspecified abdominal pain (principal); R10.2 Pelvic and perineal pain; D72.829 Elevated white blood cell count, unspecified
CPT/HCPCS: 36415; 85025

== ENCOUNTER → 2020-08-11 10:19 | Outpatient (CLI) | payer OTHER, SELFPAY ==
[2020-08-11 10:33] LABS: Basophils # 0.1 K/mm3 (0-0.2); Basophils % 1.1 % (0.1-2.0); Eosinophils # 0.4 K/mm3 (0.0-0.4); Eosinophils % 4.2 % (0.1-12.0); Hematocrit 37.2 % (37.0-47.0); Hemoglobin 11.6 g/dL (12.2-16.2); Lymphocytes # 1.8 K/mm3 (0.7-4.5); Lymphocytes % 20.3 % (10-50); Mean Corpuscular HGB Conc 31.2 g/dL (31.8-35.4); Mean Corpuscular Hemoglobin 28.6 pg (27.0-31.2); Mean Corpuscular Volume 91.7 fl (81-99); Mean Platelet Volume 7.2 fl (7.4-10.4); Monocytes # 0.5 K/mm3 (0.1-1.0); Monocytes % 5.6 % (1.7-9.3); Neutrophils % 68.7 % (37.0-80.0); Platelet Count 704 K/mm3 (142-424); Red Blood Count 4.06 M/mm3 (4.20-5.40); Red Cell Distribution Width 13.2 % (11.5-17.5); White Blood Count 8.8 K/mm3 (4.8-10.8)
--- NOTE | 2020-08-11 11:11 | CT_ITS ---
PROCEDURE: CT ABDOMEN PELVIS WO/W CON CLINICAL INDICATION: f/u CT on blood clot COMPARISON: CT CT ABDOMEN PELVIS WO/W CON from 08/08/2020 TECHNIQUE: IV Contrast: 75ML OPTIRAY 350 Oral Contrast none given Axial images obtained with sagittal and coronal reformats. All CT scans at the facility use one or more dose reduction, viz: automated exposure control, ma/kV adjustment per patient size (including targeted exams where dose is matched to indication, i.e. head), or iterative reconstruction technique. FINDINGS: Lower thorax: No acute finding ABDOMEN: The liver spleen and pancreas again appear normal. The patient is post cholecystectomy. The adrenal glands and kidneys are normal as before. ABDOMEN & PELVIS: Stomach bowel: Nondistended. No obvious mass or thickening. The small bowel is unremarkable. There is scattered stool and gas seen throughout the colon but definitely less overall stool than the previous exam. Minimal diverticulosis of the sigmoid colon is again noted without diverticulitis. Peritoneum: The large fluid collection seen lower pelvis presenting just on top of the vaginal cuff has shown interval decrease in size. For example on the coronal sequence fluid collection measures 4.2 cm superior inferior dimension where as previously it measured 5.1 cm. The rim enhancing lesion right side of the fluid collections again seen and is stable in size and likely is a an ovarian cyst. The anterior posterior dimension now measures 7.7 cm where as previously it measured 9.8 cm. Hazy opacities are again seen in the subcutaneous tissue of the lower abdomen likely representing postsurgical change Lymph nodes: No enlarged lymph nodes apparent. Vasculature: No evidence of abdominal aortic aneurysm. No retroperitoneal hemorrhage evident. Bones: No acute fracture PELVIS: Reproductive: Post hysterectomy Bladder: The urinary bladder is moderately decompressed. Appendix: Normal IMPRESSION: Interval decrease in size of the fluid collection lower pelvis again likely representing an evolving hematoma and/or seroma. I would again doubt abscess in view of the relatively thin and smooth wall around the fluid collection. Dictated by: Dr. Yuan Nicole MD 08/11/2020 13:23 Dr. Yuan Nicole MD in [facility] 08/11/2020 13:23
[2020-08-11 11:22] LABS: Alanine Aminotransferase 15 U/L (12-78); Albumin Level 4.2 g/dl (3.5-5.0); Albumin/Globulin Ratio 1.1 (1.1-1.8); Alkaline Phosphatase 92 U/L (38-126); Anion Gap 10.8 mEq/L (5-15); Aspartate Amino Transferase 24 U/L (14-36); Bilirubin,Total 0.4 mg/dl (0.2-1.3); Blood Urea Nitrogen 9 mg/dl (7-17); Calcium 9.6 mg/dl (8.4-10.2); Carbon Dioxide 29 mmol/L (22.0-30.0); Chloride 101 mmol/L (98-107); Estimated Glomerular Filt Rate 78 ml/min (>60); GFR (African American) 95 ML/MIN (>60); Globulin 3.7 g/dL (1.3-3.2); Glucose 125 mg/dl (74-100); Potassium 3.8 mmoL/L (3.5-5.1); Sodium 137 mmol/L (136-145); Total Protein,Serum 7.9 g/dl (6.3-8.2)
== END ==
PROVIDERS: Visit Provider Obstetrics & Gynecology
DX: R10.2 Pelvic and perineal pain (principal); N94.6 Dysmenorrhea, unspecified; D62 Acute posthemorrhagic anemia
CPT/HCPCS: 36415; 74178; 80053; 85025; Q9967